=== PATIENT | male | born 1980 | race Caucasian/White ===

== ENCOUNTER 2016-11-06 17:53 | Emergency (ER) | payer MEDICAID ==
[~2016-11-06] VITALS: Ht 180.3 cm; Wt 85.3 kg
[~2016-11-06 17:53] MED LIST: MARIJUANA MEDICAL
[2016-11-06 18:16] VITALS: BP 183/92
[2016-11-06 19:29] LABS: Urine Bilirubin Negative (Negative); Urine Blood Negative /uL (Negative); Urine Color Yellow (Yellow); Urine Glucose Normal (Normal); Urine Ketone Negative (Negative); Urine Mucus FEW (None Seen); Urine Nitrite Negative (Negative); Urine RBC 2 /hpf (0 - 3); Urine Urobilinogen Normal (Negative)
[2016-11-06 19:29] LABS: Basophils # (auto) 0 uL; Basophils % (auto) 0.3 % (0.0-2.0); Eosinophils # (auto) 0 uL; Eosinophils % (auto) 0.2 % (0.0-7.0); Hematocrit 46.5 % (41.0-53.0); Lymphocytes % (auto) 10.9 % (10.0-50.0); Mean Corpuscular Hemoglobin 32.2 pg (28.0-32.0); Mean Corpuscular Hgb Conc. 34.5 g/dL (32.0-36.0); Mean Corpuscular Volume 93.4 fL (80.0-100.0); Mean Platelet Volume 8.3 fL (7.4-10.4); Monocytes # (auto) 0.5 uL; Monocytes % (auto) 5.2 % (0.0-12.0); Neutrophils # (auto) 7.5 uL; Neutrophils % (auto) 83.4 % (37.0-80.0); Platelet Count (auto) 292 10^3/uL (140-450); Red Cell Distribution Width 13.6 % (11.6-16.0)
[2016-11-06 20:13] LABS: Albumin 4.1 g/dL (3.4-5.0); BUN/Creatinine Ratio 11.2; Calcium 8.7 mg/dL (8.5-10.1)
[2016-11-06 20:25] LABS: Bilirubin, Total 0.2 mg/dL (0.2-1.0); Total Protein 7.3 g/dL (6.4-8.2)
== END 2016-11-06 20:35 | disposition left against medical advice (07) ==
LOC: ER 17:57
DX: F41.9 Anxiety disorder, unspecified (principal); Z53.21 Procedure and treatment not carried out due to patient leaving prior to being seen by health care provider
CPT/HCPCS: 36415; 80053; 80307; 81001; 85025

== ENCOUNTER 2018-09-16 22:34 | Emergency (ER) | payer MEDICAID ==
[~2018-09-16] VITALS: Ht 175.3 cm; Wt 85.3 kg
[2018-09-16 22:35] VITALS: BP 125/68
== END 2018-09-16 23:22 | disposition left against medical advice (07) ==
LOC: ER 22:36
DX: F41.9 Anxiety disorder, unspecified (principal); F41.0 Panic disorder [episodic paroxysmal anxiety]; M79.10 Myalgia, unspecified site

== ENCOUNTER 2021-05-14 23:50 | Emergency (ER) | payer MEDICAID ==
[~2021-05-14] VITALS: Ht 172.7 cm; Wt 74.8 kg
[2021-05-15 05:44] LABS: Alcohol, Urine < 3.0 mg/dL (0-10); Amphetamine Screen, Urine NEGATIVE (NEGATIVE); Barbiturate Scree,Urine NEGATIVE (NEGATIVE); Benzodiazephine Screen, Urine NEGATIVE (NEGATIVE); Cannabinoid Screen, Urine POSITIVE (NEGATIVE); Cocaine Screen, Urine NEGATIVE (NEGATIVE); Opiate Scree,Urine NEGATIVE (NEGATIVE); Phencyclidine Screen, Urine NEGATIVE (NEGATIVE)
[2021-05-15 05:53] LABS: Urine Bacteria NONE SEEN /hpf (None Seen); Urine Blood Negative /uL (Negative); Urine Mucus MODERATE (None Seen); Urine Specific Gravity 1.024 (1.001-1.035); Urine WBC 1 /hpf (0 - 3)
[2021-05-15 06:18] LABS: Albumin 4.4 g/dL (3.4-5.0); Calcium 9.1 mg/dL (8.5-10.1); Potassium 3.6 mmol/L (3.5-5.1)
[2021-05-15 06:22] LABS: BUN/Creatinine Ratio 14.6; Bilirubin, Total 0.8 mg/dL (0.2-1.0)
[2021-05-15 06:30] LABS: Basophils # (auto) 0 10 ^3/uL (0-0.2); Basophils % (auto) 0.4 % (0.0-2.0); Eosinophils # (auto) 0.1 10 ^3/uL (0-0.8); Eosinophils % (auto) 1.4 % (0.0-7.0); Hematocrit 47.3 % (41.0-53.0); Hemoglobin 15.6 g/dL (13.5-17.5); Lymphocytes # (auto) 1.5 10 ^3/uL (0.4-5.4); Lymphocytes % (auto) 24.5 % (10.0-50.0); Mean Corpuscular Hemoglobin 29.9 pg (28.0-32.0); Mean Corpuscular Volume 90.7 fL (80.0-100.0); Monocytes # (auto) 0.6 10 ^3/uL (0-1.3); Monocytes % (auto) 9.4 % (0.0-12.0); Neutrophils # (auto) 4.1 10 ^3/uL (1.6-8.6); Neutrophils % (auto) 64.3 % (37.0-80.0); Nucleated Red Blood Cells % 0.1 %; Red Blood Cells 5.22 10^6/uL (4.5-5.90); Red Cell Distribution Width 13.1 % (11.8-14.3); White Blood Cell 6.3 10^3/uL (4.4-10.8)
[2021-05-15 16:35] VITALS: BP 116/70
== END 2021-05-15 16:37 | disposition home or self-care (01) ==
LOC: EDUNIT# 23:50 → EDBD 23:50 → ER 23:56
DX: F41.9 Anxiety disorder, unspecified (principal); R51.9 Headache, unspecified; F32.9 Major depressive disorder, single episode, unspecified; Z59.00 Homelessness unspecified
CPT/HCPCS: 36415; 70450; 74018; 80053; 80307; 81001; 85025

== ENCOUNTER 2024-05-01 08:53 | Inpatient (IN) | payer MEDICAID ==
[~2024-05-01] VITALS: Ht 177.8 cm; Wt 83.8 kg
--- NOTE | 2024-05-01 09:33 | ED.PDOC ---
GI ASSESSMENT HPI Comments 43 year old male presents to the ED with chief complaint of abdominal pain. Patient reports that he has been experiencing epigastric abdominal pain with associated middle back pain that radiates up his neck for the past 2 weeks. Patient denies any N/V/D, dizziness, chest pain, SOB, fever, or chills. Chief Complaint: Abdominal Pain Time Seen by MD: 09:29 Primary Care Provider: UNK Reviewed Notes: Nurses Notes, Medications, Allergies Allergies: Coded Allergies: Ibuprofen (Verified Allergy, Intermediate, GI UPSET, 04/24/11) Home Meds Reported Medications [Marijuana Medical] No Conflict Check 04/24/11 Information Source: Patient Mode of Arrival: Ambulatory Timing: Weeks Duration: Since onset Prehospital treatment: None Quality: Aching Vomitus: None Stool: Normal Severity: Moderate Recent: None Recent Hx of: None Pain Location: Epigastric Modifying Factors: Nothing Associated sign and symptoms: Abdominal Pain Past Medical History PAST MEDICAL HISTORY: Depression Surgical History: Denies all surgeries Family History Family History: Reviewed,noncontributory to illness Social History Smoker: Cigarettes, Greater Than 1 Pack/Day Alcohol: Occasionally Drugs: Marijuana, Other Lives In: Home Constitutional: denies: chills, diaphoresis, fatigue, fever, malaise, sweats, weakness, others EENTM: denies: blurred vision, double vision, ear bleeding, ear discharge, ear drainage, ear pain, ear ringing, eye pain, eye redness, hearing loss, mouth p ain, mouth swelling, nasal discharge, nose bleeding, nose congestion, nose pain, photophobia, tearing, throat pain, throat swelling, voice changes, others Respiratory: denies: cough, hemoptysis, orthopnea, SOB at rest, shortness of br eath, SOB with excertion, stridor, wheezing, others Cardiovascular: denies: chest pain, dizzy spells, diaphoresis, Dyspnea on exertion, edema, irregular heart beat, left arm pain, lightheadedness, palpitations, PND, syncope, others Gastrointestinal: reports: abdominal pain; denies: abdomen distended, blood streaked bowels, constipated, diarrhea, dysphagia, difficulty swallowing, hematemesis, melena, nausea, poor appetite, poor fluid intake, rectal bleeding, rectal pain, vomiting, others Genitourinary: denies: burning, dysuria, flank pain, frequency, hematuria, incontinence, penile discharge, penile sore, pain, testicle pain, testicle swelling, urgency, others Neurological: denies: dizziness, fainting, headache, left sided numbness, left sided weakness, numbness, paresthesia, pre-existing deficit, right sided numbness, right sided weakness, seizure, speech problems, tingling, tremors, weakness, others Musculoskeletal: reports: back pain, neck pain; denies: gout, joint pain, joint swelling, muscle pain, muscle stiffness, others Integumetry: denies: bruises, change in color, change in hair/nails, dryness, laceration, lesions, lumps, rash, wounds, others Allergic/Immunocompromised: denies: Difficulty Healing, Frequent Infections, Hives, Itching, others Hematologic/Lymphatic: denies: anemia, blood clots, easy bleeding, easy bruising, swollen glands, others Endocrine: denies: excessive hunger, excessive sweating, excessive thirst, excessive urination, flushing, intolerance to cold, intolerance to heat, unexplained weight gain, unexplained weight loss, others Psychiatric: denies: anxiety, bipolar disorder, depression, hopeless, panic disorder, schizophrenia, sleepless, suicidal, others All Other Systems: Reviewed and Negative Physical Exam General Appearance: Moderate Distress, Normal HEENT: Normal ENT Inspection, PERRL/EOMI Neck: Full Range of Motion, Non-Tender, Normal, Normal Inspection Respiratory: Chest Non-Tender, Lungs Clear, No Accessory Muscle Use, No Respiratory Distress, Normal Breath Sounds Cardiovascular: No Edema, No JVD, No Murmur, No Gallop, Normal Peripheral Pulses, Regular Rate/Rhythm Breast Exam: Deferred Gastrointestinal: No Organomegaly, Non Tender, No Pulsatile Mass, Normal Bowel Sounds, Soft Genitalia: Deferred Pelvic: Deferred Rectal: Deferred Extremities: No calf tenderness, Normal capillary refill, Normal inspection, Normal range of motion, Non-tender, No pedal edema Musculoskeletal : Apperance: Normal Neurologic: Alert, handling tech II-XII nml as Tested, No Motor Deficits, Normal Affect, Normal Mood, No Sensory Deficits Cerebellar Function: Normal Reflexes: Normal Skin: Dry, Normal Color, Warm Peripheral Pulses: 3+ Radial (R), 3+ Radial (L) Lymphatic: No Adenopathy Was a procedure done? Was a procedure done?: No GI differential Dx Differential Diagnosis: Constipation, Diverticular disease, Esophagitis, Gastritis/PUD, Gastroenteritis X-Ray, Labs, Meds, VS Vital Signs Date Time Temp Pulse Resp B/P (MAP) Pulse Ox O2 Delivery O2 Flow Rate FiO2 05/01/24 13:10 81 15 123/65 (84) 96 05/01/24 09:50 98.3 76 17 126/75 (92) 97 98.3 05/01/24 09:50 76 17 97 Room Air* 0 21 05/01/24 09:06 72 05/01/24 09:01 98.0 78 18 126/87 (100) 96 Lab Test 05/01/24 09:59 Range/Units White Blood Count 6.8 4.4-10.8 10^3/uL Red Blood Count 5.06 4.5-5.90 10^6/uL Hemoglobin 16.2 13.5-17.5 g/dL Hematocrit 47.2 41.0-53.0 % Mean Corpuscular Volume 93.1 80.0-100.0 fL Mean Corpuscular Hemoglobin 32.0 28.0-32.0 pg Mean Corpuscular Hemoglobin Concent 34.4 32.0-36.0 g/dL Red Cell Distribution Width 13.3 11.8-14.3 % Platelet Count 228 140-450 10^3/uL Mean Platelet Volume 8.4 6.9-10.8 fL Neutrophils (%) (Auto) 72.8 37.0-80.0 % Lymphocytes (%) (Auto) 17.5 10.0-50.0 % Monocytes (%) (Auto) 8.3 0.0-12.0 % Eosinophils (%) (Auto) 0.7 0.0-7.0 % Basophils (%) (Auto) 0.7 0.0-2.0 % Neutrophils # (Auto) 5.0 1.6-8.6 10 ^3/uL Lymphocytes # (Auto) 1.2 0.4-5.4 10 ^3/uL Monocytes # (Auto) 0.6 0-1.3 10 ^3/uL Eosinophils # (Auto) 0 0-0.8 10 ^3/uL Basophils # (Auto) 0.1 0-0.2 10 ^3/uL Nucleated Red Blood Cells 0.0 % Sodium Level 141 136-145 mmol/L Potassium Level 3.6 3.5-5.1 mmol/L Chloride Level 104 98-107 mmol/L Carbon Dioxide Level 29 20-31 mmol/L Anion Gap 8 5-15 Blood Urea Nitrogen 12 9-23 mg/dL Creatinine 0.96 0.700-1.30 mg/dL Glomerular Filtration Rate Calc 101 >90 mL/min BUN/Creatinine Ratio 12.5 10.0-20.0 Serum Glucose 115 H 74-106 mg/dL Calcium Level 10.7 H 8.7-10.4 mg/dL Troponin I High Sensitivity 3 L </=54 ng/L Lipase 60 H 12-53 U/L Patient alert. Complaining of abdominal pain radiating to the back. Vitals stable. Calcium level elevated. Lipase elevated. WBC within normal limits. Hemoglobin within normal limits. Establish intravenous access. Was given fluids. Reviewed his history. Explained to the patient. Continue cardiac monitoring. Time of 1ST Reevaluation: 10:29 Reevaluation 1ST: Unchanged Patient Education/Counseling: Diagnosis, Treatment, Prognosis, Need For Follow Up Family Education/Counseling: No Family Present Departure 1 Departure Time of Disposition: 16:11 Impression: Primary Impression: Acute pancreatitis Qualified Codes: K85.90 - Acute pancreatitis without necrosis or infection, unspecified Additional Impression: Hypercalcemia Disposition: ADMITTED INPATIENT Admit to: Med Surg Condition: Guarded Critical Care Note Critical Care Time?: Yes (45 min-critical care time only) Stability Stability form required: No Heart Score Heart Score: Heart Score Response (Comments) Value History N/A 0 EKG N/A 0 Age N/A 0 Risk Factors N/A 0 Troponin N/A 0 Total 0 I personally scribed for MARIA ESTHER BECKHAM MD ([email or web address]) on 05/01/24 at 09:33. Electronically submitted by Bill Rai ([email or web address]). MARIA ESTHER BECKHAM MD May 01, 2024 09:33
[2024-05-01 09:50] VITALS: PULSE 76; RESP 17; TEMP 98.3; O2SAT 97
[2024-05-01 10:10] LABS: Basophils # (auto) 0.1 10 ^3/uL (0-0.2); Basophils % (auto) 0.7 % (0.0-2.0); Eosinophils # (auto) 0 10 ^3/uL (0-0.8); Eosinophils % (auto) 0.7 % (0.0-7.0); Hematocrit 47.2 % (41.0-53.0); Hemoglobin 16.2 g/dL (13.5-17.5); Lymphocytes # (auto) 1.2 10 ^3/uL (0.4-5.4); Lymphocytes % (auto) 17.5 % (10.0-50.0); Mean Corpuscular Hgb Conc. 34.4 g/dL (32.0-36.0); Mean Corpuscular Volume 93.1 fL (80.0-100.0); Monocytes # (auto) 0.6 10 ^3/uL (0-1.3); Monocytes % (auto) 8.3 % (0.0-12.0); Neutrophils % (auto) 72.8 % (37.0-80.0); Platelet Count (auto) 228 10^3/uL (140-450); Red Blood Cells 5.06 10^6/uL (4.5-5.90); Red Cell Distribution Width 13.3 % (11.8-14.3); White Blood Cell 6.8 10^3/uL (4.4-10.8)
[2024-05-01 11:00] LABS: Anion Gap 8 (5-15); Carbon Dioxide 29 mmol/L (20-31); Chloride 104 mmol/L (98-107); Potassium 3.6 mmol/L (3.5-5.1); Sodium 141 mmol/L (136-145)
[2024-05-01 11:02] LABS: Calcium 10.7 mg/dL (8.7-10.4)
[2024-05-01 11:06] LABS: BUN/Creatinine Ratio 12.5 (10.0-20.0); Blood Urea Nitrogen 12 mg/dL (9-23)
[2024-05-01 11:33] LABS: Glucose 115 mg/dL (74-106)
[2024-05-01 11:44] LABS: Lipase 60 U/L (12-53)
[2024-05-01 13:10] VITALS: BP 123/65; PULSE 81; RESP 15; O2SAT 96
[2024-05-01] MEDS ORDERED: DEXTROSE (50%) 50ML SYRG IV PRN (14:45)
[2024-05-01] MEDS ORDERED: ACETAMINOPHEN 325 MG TAB PO PRN (14:45)
[2024-05-01] MEDS ORDERED: MORPHINE SULFATE INJ 2 MG/ml SYRG IV PRN (14:45)
[2024-05-01] MEDS ORDERED: LORazepam 0.5 MG TAB PO PRN (14:45)
[2024-05-01] MEDS ORDERED: HYDROcodone-ACET 5/325MG TAB PO PRN (14:45)
[2024-05-01] MEDS ORDERED: SODIUM CHLORIDE 0.9% 1,000 ML IV SCH (14:45)
[2024-05-01] MEDS ORDERED: metroNIDAZOLE 500MG/100ML 100 ML IV SCH (14:45)
[2024-05-01] MEDS ORDERED: TEMAZEPAM 15 MG CAP PO PRN (14:45)
[2024-05-01] MEDS ORDERED: MAALOX PLUS or MAALOX 30 ML PO PRN (14:45)
[2024-05-01] MEDS ORDERED: DOCUSATE SOD 100 MG CAP PO PRN (14:45)
[2024-05-01] MEDS ORDERED: ONDANSETRON HCL 4 MG/2 ML VIAL IV PRN (14:45)
--- NOTE | 2024-05-01 14:51 | DVHHP2 ---
History of Present Illness Reason for Visit: Abdominal pain History of Present Illness 43-year-old with a past medical history of depression patient comes in with complaints of severe epigastric and abdominal pain patient says pain has been present for the past 2 weeks not associated with nausea vomiting diarrhea no shortness a breath or chest pain patient was initially evaluated in the ED and recommended for inpatient evaluation at this point in time labs were evaluated we will continue with inpatient care as recommended by the ED Review of Systems Constitutional: No: Fever, Chills, Sweats, Weakness, Malaise, Other Eyes: No: Pain, Vision change, Conjunctivae inflammation, Eyelid inflammation, Other, Redness ENT: No: Ear pain, Ear discharge, Nose pain, Nose discharge, Nose congestion, Mouth pain, Mouth swelling, Throat pain, Throat swelling, Other Respiratory: No: Cough, Dry, Shortness of breath, SOB with excertion, Wheezing, Hemoptysis, Pleuritic Pain, Sputum, Wheezing, Other Cardiovascular: No: Chest Pain, Palpitations, Orthopnea, Paroxysmal Noc. Dyspnea, Edema, Lt Headedness, Other Gastrointestinal: Vomiting, Abdominal Pain; No: Nausea, Diarrhea, Constipation, Melena, Hematochezia, Other Genitourinary: No Dysuria, No Frequency, No Incontinence, No Hematuria, No Retention, No Other Musculoskeletal: No: other, neck pain, shoulder pain, arm pain, back pain, hand pain, leg pain, foot pain Skin: No: Rash, Lesions, Jaundice, Bruising, Other Neurological: No: Weakness, Numbness, Incoordination, Change in speech, Confusion, Seizures, Other Allergies: Coded Allergies: Ibuprofen (Verified Allergy, Intermediate, GI UPSET, 04/24/11) Exam Vital Signs Vital Signs Date Time Temp Pulse Resp B/P (MAP) Pulse Ox O2 Delivery O2 Flow Rate FiO2 05/01/24 13:10 81 15 123/65 (84) 96 05/01/24 09:50 98.3 98.3 05/01/24 09:50 Room Air* 0 21 General Appearance: Alert, Oriented X3, Cooperative HEENT: Atraumatic, EOMI Respiratory: Clear to auscultation, Normal air movement Cardiovascular: Regular rate, Normal S1 Abdominal: Normal bowel sounds Extremities: No clubbing, No cyanosis Skin: No rashes, No breakdown Neuro: Normal gait, Normal speech Psych/Mental Status: Mood NL Labs/Xrays Labs Test 05/01/24 09:59 Range/Units White Blood Count 6.8 4.4-10.8 10^3/uL Red Blood Count 5.06 4.5-5.90 10^6/uL Hemoglobin 16.2 13.5-17.5 g/dL Hematocrit 47.2 41.0-53.0 % Mean Corpuscular Volume 93.1 80.0-100.0 fL Mean Corpuscular Hemoglobin 32.0 28.0-32.0 pg Mean Corpuscular Hemoglobin Concent 34.4 32.0-36.0 g/dL Red Cell Distribution Width 13.3 11.8-14.3 % Platelet Count 228 140-450 10^3/uL Mean Platelet Volume 8.4 6.9-10.8 fL Neutrophils (%) (Auto) 72.8 37.0-80.0 % Lymphocytes (%) (Auto) 17.5 10.0-50.0 % Monocytes (%) (Auto) 8.3 0.0-12.0 % Eosinophils (%) (Auto) 0.7 0.0-7.0 % Basophils (%) (Auto) 0.7 0.0-2.0 % Neutrophils # (Auto) 5.0 1.6-8.6 10 ^3/uL Lymphocytes # (Auto) 1.2 0.4-5.4 10 ^3/uL Monocytes # (Auto) 0.6 0-1.3 10 ^3/uL Eosinophils # (Auto) 0 0-0.8 10 ^3/uL Basophils # (Auto) 0.1 0-0.2 10 ^3/uL Nucleated Red Blood Cells 0.0 % Sodium Level 141 136-145 mmol/L Potassium Level 3.6 3.5-5.1 mmol/L Chloride Level 104 98-107 mmol/L Carbon Dioxide Level 29 20-31 mmol/L Anion Gap 8 5-15 Blood Urea Nitrogen 12 9-23 mg/dL Creatinine 0.96 0.700-1.30 mg/dL Glomerular Filtration Rate Calc 101 >90 mL/min BUN/Creatinine Ratio 12.5 10.0-20.0 Serum Glucose 115 H 74-106 mg/dL Calcium Level 10.7 H 8.7-10.4 mg/dL Troponin I High Sensitivity 3 L </=54 ng/L Lipase 60 H 12-53 U/L Assessment/Plan Assessment/Plan Admitted to the [facility] surge Abdominal pain unknown etiology source of pain CT abdomen of the abdomen and pelvis CV ordered Rule out acute signs of infection UA in order to gain 4 fractions of cystitis or pyelonephritis IV hydration IV antibiotics prophylactic coverage if no acute signs of infection noted we will hold P.r.n. medication for pain management Lipase elevated CT abdomen pelvis to evaluate for possible appendicitis Diet as tolerated Hyperglycemia Stated history of diabetes however there was mild signs of hyperglycemia Insulin sliding scale minimal coverage Plan discussed with: Patient My Orders Orders - SOBEIDA VELÁZQUEZ MD Procedure Category Date Status Time Urinalysis LAB 05/01/24 Logged 14: Ct Ab Pel Wo Con-No CT 05/01/24 Logged Oral Or Iv 14:31 Metronidazole PHA 05/01/24 In Process 500mg/100ml (Flagyl 14:45 Glucose Blood PHA 05/01/24 In Process (Accu-Chek Comfort 16:00 Insulin R (Human) PHA 05/01/24 In Process (Insulin R) 16:00 Dextrose 50% Syringe PHA 05/01/24 In Process 14:45 Admit ADMIT 05/01/24 Transmitted 14:31 Code Status CODE 05/01/24 Transmitted 14:31 Vital Signs [facility]CA 05/01/24 In Process 14:31 Review Orders With [facility] 05/01/24 In Process Adm. 14:31 Consistent DIET 05/01/24 Transmitted Carb(Ccho)Diabetes Dinner Sodium Chloride 0.9% PHA 05/01/24 In Process 14:45 Lorazepam Tablet PHA 05/01/24 In Process (Ativan Tablet) 14:45 Alum & Mag PHA 05/01/24 In Process Hydrox-Simethicone 14:45 Docusate Sodium PHA 05/01/24 In Process Capsule (Colace 14:45 Acetaminophen Tablet PHA 05/01/24 In Process (Tylenol Tablet) 14:45 Temazepam (Restoril) PHA 05/01/24 In Process 14:45 Notify Of Changes CUCA 05/01/24 In Process From Base 14:31 Advance Directive [facility] 05/01/24 In Process 14:31 Basic Metabolic Panel LAB 05/02/24 Verified 04:00 Complete Blood Count LAB 05/02/24 Verified 04:00 Patient Condition ORDERS 05/01/24 Transmitted 14:31 Allergies [facility]CA 05/01/24 In Process 14:31 Hydrocodone-Acet PHA 05/01/24 In Process 5/325mg Tab ([place] 14:45 Ondansetron Hcl PHA 05/01/24 In Process (Zofran) 14:45 Morphine Sulfate PHA 05/01/24 In Process Injection 14:45 Notify Md Of Changes CUCA 05/01/24 In Process From Base 14:31 Oxygen By Nasal RT 05/01/24 Transmitted Cannula 14:31 Problem List: (1) Diabetes mellitus type 2 with complications, uncontrolled (2) Abdominal pain Date of Service: May 01, 2024 Billing Provider: SOBEIDA VELÁZQUEZ MD Common Visit Codes: 57022-SERZPYE INP/OBS CARE (HIGH) SOBEIDA VELÁZQUEZ MD May 01, 2024 14:51
[2024-05-01] MEDS ORDERED: ACCU-CHEK COMFORT CURVE STRIP VI SCH (16:00)
[2024-05-01] MEDS ORDERED: InsuLIN REG 1unit/0.01ml Soln (100units/ml) SC SCH (16:00)
--- NOTE | 2024-05-02 07:03 | ECG ---
[facility] Test Date: 2024-05-01 Test Time: 09:06:55 Pat Name: SHER ROBBINS Department: ER Room: [address] [place] [address] Gender: M Loan Underwriter: DERIC : 1980 Requested By: MARIA ESTHER BECKHAM Order Number: [id number] Reading MD: Measurements Intervals [place] Rate: 72 P: 72 OK: 159 QRS: 79 QRSD: 97 T: 40 QT: 396 QTc: 434 Interpretive Statements Sinus arrhythmia Probable left ventricular hypertrophy Baseline wander in lead(s) V3 Please click the below link to view image of tracing.
== END 2024-05-02 15:12 | disposition left against medical advice (07) | DRG 251 ==
LOC: ER 08:53 → OVERFLOW 14:31
PROVIDERS: ADMIT Hospitalist; ATTEND Student in an Organized Health Care Education/Training Program
DX: R10.9 Unspecified abdominal pain (principal); E11.65 Type 2 diabetes mellitus with hyperglycemia; E83.52 Hypercalcemia; F17.210 Nicotine dependence, cigarettes, uncomplicated; F32.A Depression, unspecified; Z88.6 Allergy status to analgesic agent
CPT/HCPCS: 36415; 80048; 83690; 84484; 85025; 93005; 99291; G0378